=== PATIENT | male | born 1995 | race Caucasian/White ===

== ENCOUNTER 2017-11-27 01:04 | Observation (INO) | payer OTHER ==
[~2017-11-27] VITALS: Ht 175.3 cm; Wt 102.5 kg
[2017-11-27] VITALS (8 sets, daily range): BP systolic 128–154; BP diastolic 60–79; PULSE 62–81; TEMP 97.7–98.5
[2017-11-27] MEDS ORDERED: PROAIR HFA0.09 MG/AC INH (01:11)
[2017-11-27 01:38] LABS: BASO # 0.1 (0.0-0.2); BASO % 0.3 % (0.0-2.0); EOS # 0.1 (0.0-0.7); EOS % 0.3 % (0-4.0); GRAN # 12.2 (1.4-6.5); GRAN % 82.9 % (42.2-75.2); HEMATOCRIT 46.3 % (42.0-52.0); HEMOGLOBIN 16.5 g/dl (13.5-18.0); LYMPH # 1.9 (1.2-3.4); MEAN CELL VOLUME 87 fl (80.0-100.0); MEAN CORPUSCULAR HEMOGLOBIN 31 pg (27.0-31.0); MEAN CORPUSCULAR HGB CONC 36 g/dl (33.0-37.0); MEAN PLATELET VOLUME 10.9 fl (7.4-10.4); MONO # 0.5 (0.1-0.6); MONO % 3.1 % (1.7-9.3); PLATELET COUNT 242 K/mm3 (130-400); RED BLOOD COUNT 5.33 M/mm3 (4.20-5.60); REDCELL DISTRIBUTION WIDTH-CV 11.9 % (11.5-14.5)
[2017-11-27 01:50] LABS: ALANINE AMINOTRANSFERASE 200 U/L (21-72); ALBUMIN 5.4 gm/dL (3.5-5.0); ALKALINE PHOSPHATASE 121 U/L (50-136); ANION GAP 13 mmol/L (7-16); AST,SGOT 85 U/L (15-37); BILIRUBIN,TOTAL 0.6 mg/dL (0.0-1.0); BLOOD UREA NITROGEN 9 mg/dL (9-20); CALCIUM 9.7 mg/dL (8.4-10.2); CARBON DIOXIDE 25 mmol/L (22-30); CHLORIDE 101 mmol/L (98-107); CREATININE, serum 0.78 mg/dL (0.66-1.25); GLUCOSE 143 mg/dL (74-106); LIPASE 56 U/L (23-300); POTASSIUM 4.1 mmol/L (3.4-5.0); SODIUM 139 mmol/L (137-145); TOTAL PROTEIN 8.6 gm/dL (6.4-8.2)
[2017-11-27 01:57] LABS: C-REACTIVE PROTEIN < 0.5 mg/dL (0.0-0.9)
== END 2017-11-27 13:20 | disposition home or self-care (01) ==
LOC: COL.ER 01:04 → SURG 01:40
PROVIDERS: Physician Assistant
DX: K35.80 Unspecified acute appendicitis (principal); K38.1 Appendicular concretions; J45.909 Unspecified asthma, uncomplicated
CPT/HCPCS: G0378; J0694; J1100; J1885; J2270; J2405; J2543; J2550; J2704; J3010; J7030; Q9967